=== PATIENT | male | born 1940 | race Two or more races ===

== ENCOUNTER 2016-12-08 08:00 | Outpatient (CLI) | payer MEDICARE, BC | END 2016-12-08 23:59 | DX: R42 Dizziness and giddiness (principal); R53.83 Other fatigue ==

== ENCOUNTER 2016-12-19 13:45 | Outpatient (CLI) | payer MEDICARE, BC | END 2016-12-19 13:46 | disposition home or self-care (01) | DX: E83.52 Hypercalcemia (principal) ==

== ENCOUNTER 2017-01-10 08:00 | Outpatient (CLI) | payer MEDICARE, BC | END 2017-01-10 23:59 | DX: I10 Essential (primary) hypertension (principal); R42 Dizziness and giddiness ==

== ENCOUNTER 2017-08-28 08:13 | Outpatient (CLI) | payer MEDICARE, BC | END 2017-08-28 08:14 | disposition home or self-care (01) | LOC: LAB.WCP 08:13 | PROVIDERS: ATTEND Family Medicine | DX: Z53.9 Procedure and treatment not carried out, unspecified reason (principal) ==

== ENCOUNTER 2017-08-29 08:04 | Outpatient (CLI) | payer MEDICARE, BC ==
[2017-08-29 08:52] LABS: CALCIUM, IONIZED 1.38 mmol/L (1.15-1.33); VBG PH 7.424 (7.31-7.41)
[2017-08-29 09:03] LABS: ALBUMIN/GLOBULIN RATIO 1.6 (1.0-2.2); BILIRUBIN,TOTAL 1.9 mg/dL (0.2-1.0); CALCIUM 10.8 mg/dL (8.5-10.3); CREATININE 1.3 mg/dL (0.6-1.2); POTASSIUM 4.3 mmol/L (3.5-5.0); TOTAL PROTEIN 7.2 g/dL (6.7-8.2)
[2017-08-29 09:21] LABS: THYROID STIMULATING HORMONE 4.13 uIU/mL (0.34-5.60)
== END 2017-08-29 08:05 | disposition home or self-care (01) ==
LOC: LAB 08:04
PROVIDERS: ATTEND Family Medicine
DX: D35.1 Benign neoplasm of parathyroid gland (principal)
CPT/HCPCS: 36415; 80053; 82306; 82330; 83970; 84439; 84443

== ENCOUNTER 2020-03-31 09:32 | Outpatient (CLI) | payer MEDICARE, BC ==
[2020-03-31 12:37] LABS: BASOPHILS % (AUTO) 0.5 %; EOSINOPHILS # (AUTO) 0.1 10^3/uL (0.0-0.7); EOSINOPHILS % (AUTO) 1.3 %; HGB - HEMOGLOBIN 15.5 g/dL (14.0-18.0); LYMPHOCYTES # (AUTO) 4.1 10^3/uL (1.5-3.5); LYMPHOCYTES % (AUTO) 47.8 %; MEAN CORPUSCULAR HEMOGLOBIN 30.9 pg (27.0-31.0); MEAN CORPUSCULAR HGB CONC 33.3 g/dL (32.0-36.0); MEAN CORPUSCULAR VOLUME 92.6 fL (80.0-94.0); MEAN PLATELET VOLUME 10.4 fL (7.4-11.4); MONOCYTES # (AUTO) 0.5 10^3/uL (0.0-1.0); MONOCYTES % (AUTO) 5.4 %; NEUTROPHILS # (AUTO) 3.8 10^3/uL (1.5-6.6); NEUTROPHILS % (AUTO) 44.6 %; PLT - PLATELET COUNT 170 10^3/uL (130-450); RED BLOOD COUNT 5.02 10^6/uL (4.70-6.10); RED CELL DISTRIBUTION WIDTH 14.4 % (12.0-15.0); WHITE BLOOD COUNT 8.6 x10^3/uL (4.8-10.8)
[2020-03-31 13:14] LABS: ALBUMIN 4.7 g/dL (3.2-5.5); ALBUMIN/GLOBULIN RATIO 1.8 (1.0-2.2); ALKALINE PHOSPHATASE 76 IU/L (42-121); ALT ALANINE AMINOTRANSFERASE 23 IU/L (10-60); AST ASPARTATE AMINOTRANSFERASE 23 IU/L (10-42); BILIRUBIN,TOTAL 1.9 mg/dL (0.2-1.0); BUN - BLOOD UREA NITROGEN 22 mg/dL (6-20); CALCIUM 10.8 mg/dL (8.5-10.3); CARBON DIOXIDE - CO2 25 mmol/L (21-32); CHLORIDE 109 mmol/L (101-111); CHOL/HDL RATIO 2.8 (<5.0); CHOLESTEROL 133 mg/dL; CREATININE 1.1 mg/dL (0.6-1.2); GLUCOSE 94 mg/dL (70-100); HDL CHOLESTEROL 48 mg/dL; LDL CHOLESTEROL,CALCULATED 69 mg/dL; LDL/HDL RATIO 1.4 (<3.6); SODIUM 140 mmol/L (135-145); TOTAL PROTEIN 7.3 g/dL (6.7-8.2); VLDL CHOLESTEROL 16 mg/dL
== END 2020-03-31 23:59 | disposition home or self-care (01) ==
LOC: LAB.WCP 09:32
PROVIDERS: ATTEND Family Medicine
DX: E78.5 Hyperlipidemia, unspecified (principal); E07.9 Disorder of thyroid, unspecified; E83.52 Hypercalcemia; D35.9 Benign neoplasm of endocrine gland, unspecified
CPT/HCPCS: 36415; 80053; 80061; 83721; 84443; 85025

== ENCOUNTER 2020-08-06 09:38 | Outpatient (CLI) | payer MEDICARE, BC ==
[2020-08-06 14:26] LABS: ALBUMIN 4.1 g/dL (3.2-5.5); ALBUMIN/GLOBULIN RATIO 1.4 (1.0-2.2); ALKALINE PHOSPHATASE 77 IU/L (42-121); ALT ALANINE AMINOTRANSFERASE 22 IU/L (10-60); AST ASPARTATE AMINOTRANSFERASE 22 IU/L (10-42); BILIRUBIN,TOTAL 1.9 mg/dL (0.2-1.0); BUN - BLOOD UREA NITROGEN 28 mg/dL (6-20); CALCIUM 10.5 mg/dL (8.5-10.3); CARBON DIOXIDE - CO2 25 mmol/L (21-32); CHLORIDE 106 mmol/L (101-111); CHOL/HDL RATIO 3.4 (<5.0); CHOLESTEROL 169 mg/dL; GLUCOSE 87 mg/dL (70-100); HDL CHOLESTEROL 50 mg/dL; LDL CHOLESTEROL,CALCULATED 106 mg/dL; LDL/HDL RATIO 2.1 (<3.6); SODIUM 139 mmol/L (135-145); VLDL CHOLESTEROL 13 mg/dL
== END 2020-08-06 23:59 | disposition home or self-care (01) ==
LOC: LAB.WCP 09:38
PROVIDERS: ATTEND Internal Medicine
DX: D35.1 Benign neoplasm of parathyroid gland (principal); R41.3 Other amnesia
CPT/HCPCS: 36415; 80053; 80061; 82607; 83721; 83970; 84443

== ENCOUNTER 2020-08-09 12:00 | Outpatient (CLI) | payer MEDICARE, BC | END 2020-08-09 23:59 | disposition home or self-care (01) | LOC: LAB.R 12:00 | PROVIDERS: ATTEND Internal Medicine | DX: D35.1 Benign neoplasm of parathyroid gland (principal) | CPT/HCPCS: 82340 ==

== ENCOUNTER 2020-11-18 15:28 | Outpatient (CLI) | payer MEDICARE, BC ==
--- NOTE | 2020-11-18 18:43 | DEXA Report ---
PROCEDURE: Dexa Spine and/or Hip INDICATIONS: BONE DISORDER TECHNIQUE: Dual energy x-ray absorptiometry (DXA) was performed on a [employer]. Regions measur ed are the AP Spine, femoral neck, and if needed forearm. COMPARISON: None. FINDINGS: Lumbar Spine: Bone Mineral Density 1.118 g/cm/cm,T score -0.7, Left Hip: Bone Mineral Density 0.855 g/cm/cm,T score -1.7, Left Femoral Neck: Bone Mineral Density 0.724 g/cm/cm, T score -2.7, (T score greater or equal to -1.0: NORMAL) (T score from -1.1 to -2.4: OSTEOPENIA) (T score less than or equal to -2.5 to: OSTEOPOROSIS) Impression: Osteoporosis. Patients with diagnosis of osteoporosis or osteopenia should have regular bone mineral density assess ment. For those eligible for Medicare, routine testing is allowed once every 2 years. Testing frequ ency can be increased for patients who have rapidly progressing disease or for those who are receivin g medical therapy to restore bone mass. Reviewed by: García Jensen MD on 11/18/2020 6:41 PM PST Approved by: García Jensen MD on 11/18/2020 6:41 PM PST Station ID: [id number]
== END 2020-11-18 15:29 | disposition home or self-care (01) ==
LOC: DI 15:28
PROVIDERS: ATTEND Internal Medicine
DX: M81.0 Age-related osteoporosis without current pathological fracture (principal); D35.1 Benign neoplasm of parathyroid gland

== ENCOUNTER 2021-01-13 08:00 | Outpatient (CLI) | payer MEDICARE, BC ==
[2021-01-13 19:16] LABS: CALCIUM 10.4 mg/dL (8.5-10.3); CREATININE 1.1 mg/dL (0.6-1.2); POTASSIUM 4.2 mmol/L (3.5-5.0)
== END 2021-01-13 23:59 | disposition home or self-care (01) ==
LOC: LAB.WCP 08:00
PROVIDERS: ATTEND Internal Medicine
DX: E21.0 Primary hyperparathyroidism (principal)
CPT/HCPCS: 36415; 80048; 83970

== ENCOUNTER 2021-10-03 09:24 | Outpatient (CLI) | payer MEDICARE, BC ==
[2021-10-03 12:03] LABS: BASOPHILS % (AUTO) 0.5 %; EOSINOPHILS # (AUTO) 0.1 10^3/uL (0.0-0.7); EOSINOPHILS % (AUTO) 1.4 %; HCT - HEMATOCRIT 50.1 % (42.0-52.0); HGB - HEMOGLOBIN 16.2 g/dL (14.0-18.0); LYMPHOCYTES # (AUTO) 3.8 10^3/uL (1.5-3.5); LYMPHOCYTES % (AUTO) 45.6 %; MEAN CORPUSCULAR HEMOGLOBIN 29.6 pg (27.0-31.0); MEAN CORPUSCULAR HGB CONC 32.3 g/dL (32.0-36.0); MEAN CORPUSCULAR VOLUME 91.4 fL (80.0-94.0); MEAN PLATELET VOLUME 10.6 fL (7.4-11.4); MONOCYTES # (AUTO) 0.5 10^3/uL (0.0-1.0); MONOCYTES % (AUTO) 5.4 %; NEUTROPHILS # (AUTO) 3.9 10^3/uL (1.5-6.6); NEUTROPHILS % (AUTO) 46.7 %; PLT - PLATELET COUNT 171 10^3/uL (130-450); RED BLOOD COUNT 5.48 10^6/uL (4.70-6.10); RED CELL DISTRIBUTION WIDTH 14.6 % (12.0-15.0); WHITE BLOOD COUNT 8.4 x10^3/uL (4.8-10.8)
[2021-10-03 12:24] LABS: ALBUMIN 4.3 g/dL (3.2-5.5); ALBUMIN/GLOBULIN RATIO 1.5 (1.0-2.2); ALKALINE PHOSPHATASE 94 IU/L (42-121); ALT ALANINE AMINOTRANSFERASE 15 IU/L (10-60); AST ASPARTATE AMINOTRANSFERASE 19 IU/L (10-42); BILIRUBIN,TOTAL 1.7 mg/dL (0.2-1.0); BUN - BLOOD UREA NITROGEN 29 mg/dL (6-20); CARBON DIOXIDE - CO2 25 mmol/L (21-32); CHLORIDE 108 mmol/L (101-111); CHOLESTEROL 195 mg/dL; CREATININE 1.1 mg/dL (0.6-1.2); GFR - MDRD 64 (>89); GLUCOSE 91 mg/dL (70-100); POTASSIUM 4.2 mmol/L (3.5-5.0); SODIUM 141 mmol/L (135-145); TOTAL PROTEIN 7.2 g/dL (6.7-8.2); TRIGLYCERIDES 65 mg/dL; VLDL CHOLESTEROL 13 mg/dL
[2021-10-03 12:28] LABS: THYROID STIMULATING HORMONE 3.94 uIU/mL (0.34-5.60)
[2021-10-03 12:42] LABS: CHOL/HDL RATIO 4.3 (<5.0); HDL CHOLESTEROL 45 mg/dL; LDL CHOLESTEROL,CALCULATED 137 mg/dL
== END 2021-10-03 09:25 | disposition home or self-care (01) ==
LOC: LAB.N 09:24
PROVIDERS: ATTEND Internal Medicine
DX: E21.0 Primary hyperparathyroidism (principal); E78.5 Hyperlipidemia, unspecified; C61 Malignant neoplasm of prostate; F41.9 Anxiety disorder, unspecified; I10 Essential (primary) hypertension
CPT/HCPCS: 36415; 80053; 80061; 83721; 83970; 84153; 84443; 85025

== ENCOUNTER 2021-10-24 15:15 | Outpatient (CLI) | payer MEDICARE, BC ==
[2021-10-24 18:10] LABS: ALBUMIN 3.3 g/dL (3.2-5.5); ALBUMIN/GLOBULIN RATIO 0.9 (1.0-2.2); BILIRUBIN,TOTAL 1.1 mg/dL (0.2-1.0); CALCIUM 10.8 mg/dL (8.5-10.3); POTASSIUM 4.5 mmol/L (3.5-5.0); TOTAL PROTEIN 6.8 g/dL (6.7-8.2)
== END 2021-10-24 15:16 | disposition home or self-care (01) ==
LOC: LAB.N 15:15
PROVIDERS: ATTEND Nurse Practitioner Family
DX: R74.01 Elevation of levels of liver transaminase levels (principal); I25.2 Old myocardial infarction; R41.3 Other amnesia; R35.0 Frequency of micturition
CPT/HCPCS: 36415; 80053; 81001

== ENCOUNTER 2023-03-06 07:43 | Outpatient (CLI) | payer MEDICARE, BC ==
[2023-03-06 11:56] LABS: BASOPHILS % (AUTO) 0.4 %; EOSINOPHILS # (AUTO) 0.2 10^3/uL (0.0-0.7); EOSINOPHILS % (AUTO) 1.9 %; HCT - HEMATOCRIT 49.8 % (42.0-52.0); HGB - HEMOGLOBIN 16.3 g/dL (14.0-18.0); LYMPHOCYTES # (AUTO) 4.7 10^3/uL (1.5-3.5); LYMPHOCYTES % (AUTO) 47.8 %; MEAN CORPUSCULAR HEMOGLOBIN 29.5 pg (27.0-31.0); MEAN CORPUSCULAR HGB CONC 32.7 g/dL (32.0-36.0); MEAN CORPUSCULAR VOLUME 90.1 fL (80.0-94.0); MEAN PLATELET VOLUME 10.9 fL (7.4-11.4); MONOCYTES # (AUTO) 0.5 10^3/uL (0.0-1.0); MONOCYTES % (AUTO) 5.4 %; NEUTROPHILS # (AUTO) 4.3 10^3/uL (1.5-6.6); NEUTROPHILS % (AUTO) 44.2 %; PLT - PLATELET COUNT 180 10^3/uL (130-450); RED BLOOD COUNT 5.53 10^6/uL (4.70-6.10); RED CELL DISTRIBUTION WIDTH 14.2 % (12.0-15.0); WHITE BLOOD COUNT 9.8 x10^3/uL (4.8-10.8)
[2023-03-06 12:21] LABS: THYROID STIMULATING HORMONE 3.71 uIU/mL (0.34-5.60)
[2023-03-06 12:25] LABS: FERRITIN 217.6 ng/mL (23.9-336.2)
[2023-03-06 21:34] LABS: % IRON SATURATION 36 % (20-50); ALBUMIN/GLOBULIN RATIO 1.3 (1.0-2.2); ALKALINE PHOSPHATASE 88 IU/L (42-121); ALT ALANINE AMINOTRANSFERASE 39 IU/L (10-60); AST ASPARTATE AMINOTRANSFERASE 31 IU/L (10-42); BILIRUBIN,TOTAL 1.6 mg/dL (0.2-1.0); BUN - BLOOD UREA NITROGEN 24 mg/dL (6-20); CALCIUM 11.2 mg/dL (8.5-10.3); CARBON DIOXIDE - CO2 25 mmol/L (21-32); CHLORIDE 107 mmol/L (101-111); CHOL/HDL RATIO 2.1 (<5.0); CHOLESTEROL 105 mg/dL; CREATININE 1.2 mg/dL (0.6-1.2); GFR - MDRD 58 (>89); GLUCOSE 97 mg/dL (70-100); HDL CHOLESTEROL 49 mg/dL; IRON 115 ug/dL (45-182); LDL CHOLESTEROL,CALCULATED 42 mg/dL; LDL/HDL RATIO 0.9 (<3.6); POTASSIUM 4.5 mmol/L (3.5-5.0); SODIUM 139 mmol/L (135-145); TOTAL IRON BINDING CAPACITY 316 ug/dL (250-450); TOTAL PROTEIN 7.2 g/dL (6.7-8.2); TRANSFERRIN 226 mg/dL (180-329); TRIGLYCERIDES 69 mg/dL; VLDL CHOLESTEROL 14 mg/dL
[2023-03-07 02:08] LABS: HBsAG SCREEN Negative (Negative); HCV AB Non Reactive (Non Reactive)
== END 2023-03-06 07:44 | disposition home or self-care (01) ==
LOC: LAB.N 07:43
PROVIDERS: ATTEND Internal Medicine
DX: C61 Malignant neoplasm of prostate (principal); R74.01 Elevation of levels of liver transaminase levels; I25.2 Old myocardial infarction; E21.0 Primary hyperparathyroidism; F03.90 Unspecified dementia, unspecified severity, without behavioral disturbance, psychotic disturbance, mood disturbance, and anxiety
CPT/HCPCS: 36415; 80053; 80061; 82728; 83540; 83721; 83970; 84153; 84443; 84466; 85025; 86704; 86803; 87340

== ENCOUNTER 2023-10-22 10:08 | Outpatient (CLI) | payer MEDICARE, BC ==
[2023-10-22 12:38] LABS: CALCIUM 11.5 mg/dL (8.5-10.3); CREATININE 1.4 mg/dL (0.6-1.3); POTASSIUM 4.4 mmol/L (3.5-4.5)
== END 2023-10-22 10:09 | disposition home or self-care (01) ==
LOC: LAB.N 10:08
PROVIDERS: ATTEND Internal Medicine
DX: I10 Essential (primary) hypertension (principal); E21.0 Primary hyperparathyroidism
CPT/HCPCS: 36415; 80048; 83970

== ENCOUNTER 2023-11-20 14:38 | Outpatient (CLI) | payer MEDICARE, BC ==
[2023-11-20 18:23] LABS: CALCIUM 9.5 mg/dL (8.5-10.3); CREATININE 1.2 mg/dL (0.6-1.3); POTASSIUM 4.2 mmol/L (3.5-4.5)
== END 2023-11-20 14:39 | disposition home or self-care (01) ==
LOC: LAB.N 14:38
PROVIDERS: ATTEND Internal Medicine
DX: E21.0 Primary hyperparathyroidism (principal)
CPT/HCPCS: 36415; 80048; 83970

== ENCOUNTER 2023-12-11 08:00 | Outpatient (CLI) | payer MEDICARE, BC | END 2023-12-11 23:59 | disposition home or self-care (01) | LOC: LAB.R 08:00 | PROVIDERS: ATTEND Internal Medicine | DX: R19.7 Diarrhea, unspecified (principal) | CPT/HCPCS: 87045; 87046; 87329; 87427; 87493 ==

== ENCOUNTER 2024-05-01 10:23 | Outpatient (CLI) | payer MEDICARE, BC ==
[2024-05-01 12:44] LABS: HGB - HEMOGLOBIN 13.9 g/dL (14.0-18.0); MEAN CORPUSCULAR HEMOGLOBIN 29.7 pg (27.0-31.0); MEAN CORPUSCULAR HGB CONC 32.3 g/dL (32.0-36.0); MEAN CORPUSCULAR VOLUME 91.9 fL (80.0-94.0); MEAN PLATELET VOLUME 10.7 fL (7.4-11.4); RED BLOOD COUNT 4.68 10^6/uL (4.70-6.10); RED CELL DISTRIBUTION WIDTH 14.6 % (12.0-15.0); WHITE BLOOD COUNT 9.2 x10^3/uL (4.8-10.8)
[2024-05-01 13:19] LABS: CALCIUM 9.4 mg/dL (8.5-10.3); CREATININE 1.6 mg/dL (0.6-1.3); POTASSIUM 4.3 mmol/L (3.5-4.5)
== END 2024-05-01 10:24 | disposition home or self-care (01) ==
LOC: LAB.N 10:23
PROVIDERS: ATTEND Internal Medicine Cardiovascular Disease
DX: I50.32 Chronic diastolic (congestive) heart failure (principal)
CPT/HCPCS: 36415; 80048; 83880; 85025; 85027

== ENCOUNTER 2024-05-28 12:50 | Outpatient (CLI) | payer MEDICARE, BC | END 2024-05-28 23:59 | disposition short-term general hospital (02) | LOC: EMS 12:50 | DX: R51.9 Headache, unspecified (principal); S09.93XA Unspecified injury of face, initial encounter; W01.0XXA Fall on same level from slipping, tripping and stumbling without subsequent striking against object, initial encounter; Y92.000 Kitchen of unspecified non-institutional (private) residence as the place of occurrence of the external cause | CPT/HCPCS: A0425; A0429; A0888 ==